=== PATIENT | female | born 1995 | race Caucasian/White ===

== ENCOUNTER 2016-11-26 17:12 | Emergency (ER) | payer OTHER ==
[2016-11-26 17:21] VITALS: BP 115/66; PULSE 90; TEMP 98; BMI 25.0
--- NOTE | 2016-11-26 18:23 | PDOC ---
History of Present Illness - General Chief Complaint: Rash Stated Complaint: ALLERGIC REACTION Time Seen by Provider: 11/26/16 17:36 History Source: Patient - History of Present Illness Timing/Duration: reports: this morning Past History - Past Medical History Allergies/Adverse Reactions: Allergies Allergy/AdvReac Type Severity Reaction Status Date / Time SEAFOOD Allergy Difficulty Uncoded 11/26/16 17:21 Breathing Other medical history: NONE - Psycho/Social/Smoking Cessation Hx Anxiety: No Suicidal Ideation: No Smoking History: Never smoked Hx Alcohol Use: No Drug/Substance Use Hx: No Substance Use Type: None Review of Systems - Review of Systems Constitutional: No: Fever Musculoskeletal: Yes: Joint Pain. No: Joint Swelling Integumentary: Yes: Pruritus, Rash *Physical Exam - Vital Signs Last Vital Signs Temp Pulse Resp BP Pulse Ox 98 F 90 20 115/66 97 11/26/16 17:17 11/26/16 17:17 11/26/16 17:17 11/26/16 17:17 11/26/16 17:17 - Physical Exam General Appearance: Yes: Appropriately Dressed. No: Apparent Distress HEENT: positive: Normal Voice Neck: positive: Supple Respiratory/Chest: negative: Respiratory Distress Extremity: positive: Normal Inspection. negative: Tender Integumentary: positive: Dry, Warm. negative: Rash Neurologic: positive: Alert, Normal Mood/Affect Medical Decision Making - Medical Decision Making 11/26/16 18:10 21 yo F, only allergy is to seafood, p/w pruritic rash to b/l LE this am that improved w/ benadryl but here for evaluation. No resp sxs. Pt states she has had similar rash in the past. Also c/o pain to knees and ankles b/l that also began this am. Denies any inciting agents. Pt well appearing and stable w/ no rash noted and unremarkable exam otherwise. Rash possible hives. Dc w/ benadryl as needed and f/u with PMD for possible allergy f/u 11/26/16 18:24 *DC/Admit/Observation/Transfer Diagnosis at time of Disposition: Rash and nonspecific skin eruption - Discharge Dispostion Disposition: HOME Condition at time of disposition: Good - Patient Instructions Printed Discharge Instructions: DI for Hives Additional Instructions: [place] benadryl segn sea necesario para el dolor y siga con dow PMD para posible seguimiento con un alergista Print Language: [place]UG[place]
== END 2016-11-26 18:11 | disposition home or self-care (01) ==
LOC: JERFT 17:12
DX: R21 Rash and other nonspecific skin eruption (principal); Z91.013 Allergy to seafood
CPT/HCPCS: 99281-25